=== PATIENT | male | born 1985 | race African-American/Black ===

== ENCOUNTER 2016-11-14 19:52 | Emergency (ER) | payer OTHER ==
[2016-11-14] MEDS ORDERED: ACETAMINOPHEN 325 MG TAB As Ordered ONE (20:45)
--- NOTE | 2016-11-14 23:45 | EDDOCDS ---
Nurse's Notes [facility] Name: Ender Gomez Age: 31 yrs Sex: Male : 1985 Arrival Date: 11/14/2016 Time: 19:52 Bed PR Private MD: MIFazal VARGAS Diagnosis: Other internal derangements of knee Presentation: 11/14 20:12 Presenting complaint: Patient states: right knee pain since last year. No new injury ttb noted. Adult Sepsis Screening: The patient does not have new or worsening altered mentation. Patient's respiratory rate is less than 22. Systolic blood pressure is greater than 100. Patient has a qSOFA score of 0- Negative Sepsis Screen. Suicide/Homicide risk assessment- the patient denies having any suicidal and/or homicidal ideations and does not present with any other emotional, behavioral or mental health complaints. 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 Transition of care: patient was not received from another setting of care. 20:12 Acuity: JARVIS Level 4 ttb 20:12 Method Of Arrival: Walkin/Carried/Asstd ttb Triage Assessment: 20:13 General: Appears in no apparent distress, well nourished, well groomed, Behavior is ttb appropriate for age, cooperative, pleasant. Pain: Location: right knee 04/12. HIV screening NA for this visit Offered previously. Neurological: Level of Consciousness is awake, alert. Cardiovascular: Chest pain is denied. Respiratory: No deficits noted. Airway is patent Respiratory effort is even, unlabored, Denies cough, shortness of breath. Derm: Skin is normal. Musculoskeletal: Range of motion intact in all extremities. Reports pain in right knee. Historical: - Allergies: no known allergies; - Home Meds: 1. ibuprofen 200 mg Oral tab 600 mg prn (Last dose: 11/14/2016 18:00) - PMHx: knee pain; - PSHx: right wrist surgery; - Social history: Smoking status: Patient states was never smoker of tobacco. Patient/guardian denies using alcohol, street drugs, No barriers to communication noted, The patient speaks fluent Omani, Speaks appropriately for age. - Family history: Not pertinent. - : The pt / caregiver states he / she is not on anticoagulants. Home medication list is obtained from the patient. - Exposure Risk Screening:: None identified. Screenin:41 Screening information is obtained from the patient. Fall risk: No risks identified. tm5 Assistance ADL's: requires no assistance with activities of daily living. Abuse/DV Screen: The patient / caregiver reports he/she is: not in a situation that causes fear, pain or injury. Nutritional screening: No deficits noted. Advance Directives: There is no active DNR order. home support is adequate. 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 Vital Signs: 19:54 BP 146 / 87; Pulse 70; Resp 18; Temp 97.4(O); Pulse Ox 100% on R/A; Weight 77.11 kg; dem1 Height 5 ft. 7 in. (170.18 cm); Pain 10/10; 23:42 BP 132 / 58; Pulse 70; Resp 18; Temp 97.8(O); Pulse Ox 99% on R/A; Pain 4/10; tm5 19:54 Body Mass Index 26.63 (77.11 kg, 170.18 cm) [facility] Vitals: 19:54 Log In Time: November 14, 2016 at 19:52. [facility] ED Course: 19:53 Patient visited by William Reese. dem1 19:53 [facility] is Private Physician. dem1 19:53 Patient moved to Waiting dem1 19:54 Patient moved to Pre RCE dem1 20:13 Triage Initiated ttb 20:26 [facility] ck7 20:26 Renzo Spangler DO is Attending Physician. ck7 20:26 Patient visited by Tay Soto RPA-C. ck7 20:26 Patient moved to Triage 2 jp4 20:47 Patient moved to TR2 jp4 21:01 Patient visited by Tay Soto RPA-C. ck7 22:07 Patient visited by Tay Soto RPA-C. ck7 22:55 Patient moved to PR1 / 25 jp4 23:08 Patient visited by Tay Soto RPA-C. ck7 23:08 [facility] is Referral Physician. ck7 23:30 [facility] Payment Agreement was scanned into [employer] and attached to record. zo 23:41 The patient / caregiver is instructed regarding the plan of care and ED course. tm5 23:41 No IV's were initiated during this patient's visit. No procedures done that require tm5 assistance. Crutch training done. Knee immobilizer applied on right knee. Patient with positive distal sensation and brisk distal capillary refill after application. Administered Medications: 20:47 Drug: Acetaminophen 650 mg [acetaminophen 325 mg tablet (2 tabs)] Route: PO; rs3 23:41 Follow up: Response: No Adverse Reaction tm5 Order Results: There are currently no results for this order. Outcome: 23:09 Discharge ordered by Provider. ck7 23:42 Discharge Assessment: Patient awake, alert and oriented x 3. No cognitive and/or tm5 functional deficits noted. Patient verbalized understanding of disposition instructions. patient administered narcotics - no. The following High Risk Discharge criteria are identified: None. Condition: good Condition: stable. No special radiology studies were completed. Property :Personal belongings accompany Pt. 23:44 Patient left the ED. tm5 Signatures: Claire Ferreira Rosemary,RN RN rs3 William Reese dem1 Tay Soto, RPA-C RPA-Cck7 Rupali Flores, RN RN ttKvng Mixon jp4 Chastity Bridges RN RN tm5 MTDD
--- NOTE | 2016-11-14 23:45 | EDDOCDS ---
Physician Documentation [facility] Name: Enedr Gomez Age: 31 yrs Sex: Male : 1985 Arrival Date: 11/14/2016 Time: 19:52 Bed PR Private MD: [facility] [place] Disposition: 11/14/16 23:09 Discharged to Home/Self Care. Impression: Other internal derangements of knee. - Condition is Stable. - Discharge Instructions: Knee Pain. - Prescriptions for Naprosyn 500 mg Oral Tablet - take 1 tablet by ORAL route 2 times per day take with food; 30 tablet. - Medication Reconciliation, Local Pharmacy Hours form. - Follow up: [facility] [place]; When: 1 - 2 days; Reason: Recheck today's complaints, Continuance of care. - Problem is new. - Symptoms have improved. - Notes: STOP MOTRIN, START NAPROSYN, FOLLOW UP WITH YOUR DOCTOR, RETURN TO THE ER IF THE SYMPTOMS WORSEN OR BECOME CONCERNING Historical: - Allergies: no known allergies; - Home Meds: 1. ibuprofen 200 mg Oral tab 600 mg prn (Last dose: 11/14/2016 18:00) - PMHx: knee pain; - PSHx: right wrist surgery; - Social history: Smoking status: Patient states was never smoker of tobacco. Patient/guardian denies using alcohol, street drugs, No barriers to communication noted, The patient speaks fluent Sami, Speaks appropriately for age. - Family history: Not pertinent. - : The pt / caregiver states he / she is not on anticoagulants. Home medication list is obtained from the patient. - Exposure Risk Screening:: None identified. Vital Signs: 11/14 19:54 BP 146 / 87; Pulse 70; Resp 18; Temp 97.4(O); Pulse Ox 100% on R/A; Weight 77.11 kg / dem1 170 lbs; Height 5 ft. 7 in. (170.18 cm); Pain 10/10; 23:42 BP 132 / 58; Pulse 70; Resp 18; Temp 97.8(O); Pulse Ox 99% on R/A; Pain 4/10; tm5 19:54 Body Mass Index 26.63 (77.11 kg, 170.18 cm) dem1 Procedures: 23:13 Fracture care/splinting: Splint applied to right leg using knee immobilizer, applied by ck7 nurse. Examined by me, post splint application: neurovascular intact, 2+ distal pulses palpable, brisk capillary refill noted, Patient tolerated well. MDM: 20:42 Acetaminophen Tablet 650 mg PO once ordered. ck7 20:43 Knee, Complete Ordered. EDMS 23:08 Knee Immobilizer ordered. ck7 23:08 Crutches ordered. ck7 23:30 Financial registration complete. zo 23:30 [facility] Payment Agreement was scanned into [email or web address] and attached to record. zo Administered Medications: 20:47 Drug: Acetaminophen 650 mg [acetaminophen 325 mg tablet (2 tabs)] Route: PO; rs3 23:41 Follow up: Response: No Adverse Reaction tm5 Signatures: Dispatcher [employer] EDMS Claire Ferreira Christopher, RPA-C RPA-Cck7 Rupali Flores RN RN ttb Chastity Bridges RN RN tm5 Heena Ngo RN rs3 The chart was reviewed and I authenticate all verbal orders and agree with the evaluation and treatment provided.Attachments: 23:30 [facility] Payment Agreement zo MTDD
--- NOTE | 2016-11-15 13:56 | REP ---
RIGHT KNEE SERIES, COMPLETE: 11/14/2016. Clinical history: Knee pain. Five views are provided. [place] view shows no subluxation, dislocation or joint space narrowing of the patellar femoral joint. No patellar fracture. I see no definite joint effusion. There is no loose body, osteochondral defect or joint space narrowing of the medial or lateral compartments. No fracture or avulsion. Impression: 1. Negative right knee series. Signed by Flaco Hill MD 11/15/2016 07:24 P
--- NOTE | 2016-11-17 00:45 | EDDOCDS ---
Nurse's Notes [facility] Name: Ender Gomez Age: 31 yrs Sex: Male : 1985 Arrival Date: 11/14/2016 Time: 19:52 Bed PR Private MD: NCFazal VARGAS Diagnosis: Other internal derangements of knee Presentation: 11/14 20:12 Presenting complaint: Patient states: right knee pain since last year. No new injury ttb noted. Adult Sepsis Screening: The patient does not have new or worsening altered mentation. Patient's respiratory rate is less than 22. Systolic blood pressure is greater than 100. Patient has a qSOFA score of 0- Negative Sepsis Screen. Suicide/Homicide risk assessment- the patient denies having any suicidal and/or homicidal ideations and does not present with any other emotional, behavioral or mental health complaints. 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 Transition of care: patient was not received from another setting of care. 20:12 Acuity: JARVIS Level 4 ttb 20:12 Method Of Arrival: Walkin/Carried/Asstd ttb Triage Assessment: 20:13 General: Appears in no apparent distress, well nourished, well groomed, Behavior is ttb appropriate for age, cooperative, pleasant. Pain: Location: right knee 04/12. HIV screening NA for this visit Offered previously. Neurological: Level of Consciousness is awake, alert. Cardiovascular: Chest pain is denied. Respiratory: No deficits noted. Airway is patent Respiratory effort is even, unlabored, Denies cough, shortness of breath. Derm: Skin is normal. Musculoskeletal: Range of motion intact in all extremities. Reports pain in right knee. Historical: - Allergies: no known allergies; - Home Meds: 1. ibuprofen 200 mg Oral tab 600 mg prn (Last dose: 11/14/2016 18:00) - PMHx: knee pain; - PSHx: right wrist surgery; - Social history: Smoking status: Patient states was never smoker of tobacco. Patient/guardian denies using alcohol, street drugs, No barriers to communication noted, The patient speaks fluent [place], Speaks appropriately for age. - Family history: Not pertinent. - : The pt / caregiver states he / she is not on anticoagulants. Home medication list is obtained from the patient. - Exposure Risk Screening:: None identified. Screenin:41 Screening information is obtained from the patient. Fall risk: No risks identified. tm5 Assistance ADL's: requires no assistance with activities of daily living. Abuse/DV Screen: The patient / caregiver reports he/she is: not in a situation that causes fear, pain or injury. Nutritional screening: No deficits noted. Advance Directives: There is no active DNR order. home support is adequate. Assessment: 23:42 General: Appears in no apparent distress, physician note, pt appeared to be in no tm5 distress, pt with + understanding of all discharge & crutch use & knee immobilizer. Vital Signs: 19:54 BP 146 / 87; Pulse 70; Resp 18; Temp 97.4(O); Pulse Ox 100% on R/A; Weight 77.11 kg; dem1 Height 5 ft. 7 in. (170.18 cm); Pain 10/10; 23:42 BP 132 / 58; Pulse 70; Resp 18; Temp 97.8(O); Pulse Ox 99% on R/A; Pain 4/10; tm5 19:54 Body Mass Index 26.63 (77.11 kg, 170.18 cm) [facility] Vitals: 19:54 Log In Time: November 14, 2016 at 19:52. [facility] ED Course: 19:53 Patient visited by William Reese. dem1 19:53 [facility] is Private Physician. dem1 19:53 Patient moved to Waiting dem1 19:54 Patient moved to Pre RCE dem1 20:13 Triage Initiated ttb 20:26 [facility] ck7 20:26 Renzo Spangler DO is Attending Physician. ck7 20:26 Patient visited by Tay Soto RPA-C. ck7 20:26 Patient moved to Triage 2 jp4 20:47 Patient moved to TR2 jp4 21:01 Patient visited by Tay Soto RPA-C. ck7 22:07 Patient visited by Tay Soto RPA-C. ck7 22:55 Patient moved to PR1 / 25 jp4 23:08 Patient visited by Tay Soto RPA-C. ck7 23:08 [facility] is Referral Physician. ck7 23:30 [facility] Payment Agreement was scanned into [employer] and attached to record. zo 23:41 The patient / caregiver is instructed regarding the plan of care and ED course. tm5 23:41 No IV's were initiated during this patient's visit. No procedures done that require tm5 assistance. Crutch training done. Knee immobilizer applied on right knee. Patient with positive distal sensation and brisk distal capillary refill after application. 11/15 14:31 Knee, Complete Returned. EDVT 19:14 T-Sheet-- Draft Copy was scanned into [employer] and attached to record. klr Administered Medications: 11/14 20:47 Drug: Acetaminophen 650 mg [acetaminophen 325 mg tablet (2 tabs)] Route: PO; rs3 23:41 Follow up: Response: No Adverse Reaction tm5 Order Results: Radiology Order: Knee, Complete Test: Knee, Complete REASON FOR EXAMINATION: Deformity/Swelling; RIGHT KNEE SERIES, COMPLETE: 11/14/2016.; ; Clinical history: Knee pain.; ; Five views are provided.; ; [place] view shows no subluxation, dislocation or joint space narrowing of the; patellar femoral joint. No patellar fracture. I see no definite joint effusion.; There is no loose body, osteochondral defect or joint space narrowing of the; medial or lateral compartments. No fracture or avulsion.; ; Impression:; ; 1. Negative right knee series.; ; ; Signed by; Flaco Hill MD 11/15/2016 07:24 P; Outcome: 23:09 Discharge ordered by Provider. ck7 23:42 Discharge Assessment: Patient awake, alert and oriented x 3. No cognitive and/or tm5 functional deficits noted. Patient verbalized understanding of disposition instructions. patient administered narcotics - no. The following High Risk Discharge criteria are identified: None. Condition: good Condition: stable. No special radiology studies were completed. Property :Personal belongings accompany Pt. 23:44 Patient left the ED. tm5 Signatures: Dispatcher [employer] EDMS Claire Ferreira Rosemary,RN RN rs3 William Reese1 Tay Soto, RPA-C RPA-Cck7 Rupali Flores RN RN ttKvng Mixon Kathie klr Matice, Tonya,RN RN tm5 Chart Complete MTDD
--- NOTE | 2016-11-17 00:45 | EDDOCDS ---
Physician Documentation [facility] Name: Ender Gomez Age: 31 yrs Sex: Male : 1985 Arrival Date: 11/14/2016 Time: 19:52 Bed PR Private MD: [facility] [place] Disposition: 11/14/16 23:09 Discharged to Home/Self Care. Impression: Other internal derangements of knee. - Condition is Stable. - Discharge Instructions: Knee Pain. - Prescriptions for Naprosyn 500 mg Oral Tablet - take 1 tablet by ORAL route 2 times per day take with food; 30 tablet. - Medication Reconciliation, Local Pharmacy Hours form. - Follow up: [facility] [place]; When: 1 - 2 days; Reason: Recheck today's complaints, Continuance of care. - Problem is new. - Symptoms have improved. - Notes: STOP MOTRIN, START NAPROSYN, FOLLOW UP WITH YOUR DOCTOR, RETURN TO THE ER IF THE SYMPTOMS WORSEN OR BECOME CONCERNING Historical: - Allergies: no known allergies; - Home Meds: 1. ibuprofen 200 mg Oral tab 600 mg prn (Last dose: 11/14/2016 18:00) - PMHx: knee pain; - PSHx: right wrist surgery; - Social history: Smoking status: Patient states was never smoker of tobacco. Patient/guardian denies using alcohol, street drugs, No barriers to communication noted, The patient speaks fluent Arabic, Speaks appropriately for age. - Family history: Not pertinent. - : The pt / caregiver states he / she is not on anticoagulants. Home medication list is obtained from the patient. - Exposure Risk Screening:: None identified. Vital Signs: 11/14 19:54 BP 146 / 87; Pulse 70; Resp 18; Temp 97.4(O); Pulse Ox 100% on R/A; Weight 77.11 kg / dem1 170 lbs; Height 5 ft. 7 in. (170.18 cm); Pain 10/10; 23:42 BP 132 / 58; Pulse 70; Resp 18; Temp 97.8(O); Pulse Ox 99% on R/A; Pain 4/10; tm5 19:54 Body Mass Index 26.63 (77.11 kg, 170.18 cm) dem1 Procedures: 23:13 Fracture care/splinting: Splint applied to right leg using knee immobilizer, applied by ck7 nurse. Examined by me, post splint application: neurovascular intact, 2+ distal pulses palpable, brisk capillary refill noted, Patient tolerated well. MDM: 20:42 Acetaminophen Tablet 650 mg PO once ordered. ck7 20:43 Knee, Complete Ordered. EDMS 23:08 Knee Immobilizer ordered. ck7 23:08 Crutches ordered. ck7 23:30 Financial registration complete. zo 23:30 [facility] Payment Agreement was scanned into [employer] and attached to record. zo 11/15 19:14 T-Sheet-- Draft Copy was scanned into [employer] and attached to record. klr Administered Medications: 11/14 20:47 Drug: Acetaminophen 650 mg [acetaminophen 325 mg tablet (2 tabs)] Route: PO; rs3 23:41 Follow up: Response: No Adverse Reaction tm5 Signatures: Dispatcher [employer] EDMS Claire Ferreira Christopher, ANTIONE-C RPA-Cck7 Rupali Flores RN RN Jenn Dixon Tonya, RN RN tm5 Heena Ngo RN rs3 The chart was reviewed and I authenticate all verbal orders and agree with the evaluation and treatment provided.Attachments: 23:30 [facility] Payment Agreement zo 11/15 19:14 T-Sheet-- Draft Copy klr Chart Complete MTDD
--- NOTE | 2016-11-17 00:45 | EDDOCDS ---
Physician Documentation [facility] Name: Ender Gomez Age: 31 yrs Sex: Male : 1985 Arrival Date: 11/14/2016 Time: 19:52 Bed PR Private MD: [facility] [place] Disposition: 11/14/16 23:09 Discharged to Home/Self Care. Impression: Other internal derangements of knee. - Condition is Stable. - Discharge Instructions: Knee Pain. - Prescriptions for Naprosyn 500 mg Oral Tablet - take 1 tablet by ORAL route 2 times per day take with food; 30 tablet. - Medication Reconciliation, Local Pharmacy Hours form. - Follow up: [facility] [place]; When: 1 - 2 days; Reason: Recheck today's complaints, Continuance of care. - Problem is new. - Symptoms have improved. - Notes: STOP MOTRIN, START NAPROSYN, FOLLOW UP WITH YOUR DOCTOR, RETURN TO THE ER IF THE SYMPTOMS WORSEN OR BECOME CONCERNING Historical: - Allergies: no known allergies; - Home Meds: 1. ibuprofen 200 mg Oral tab 600 mg prn (Last dose: 11/14/2016 18:00) - PMHx: knee pain; - PSHx: right wrist surgery; - Social history: Smoking status: Patient states was never smoker of tobacco. Patient/guardian denies using alcohol, street drugs, No barriers to communication noted, The patient speaks fluent Serbian, Speaks appropriately for age. - Family history: Not pertinent. - : The pt / caregiver states he / she is not on anticoagulants. Home medication list is obtained from the patient. - Exposure Risk Screening:: None identified. Vital Signs: 11/14 19:54 BP 146 / 87; Pulse 70; Resp 18; Temp 97.4(O); Pulse Ox 100% on R/A; Weight 77.11 kg / dem1 170 lbs; Height 5 ft. 7 in. (170.18 cm); Pain 10/10; 23:42 BP 132 / 58; Pulse 70; Resp 18; Temp 97.8(O); Pulse Ox 99% on R/A; Pain 4/10; tm5 19:54 Body Mass Index 26.63 (77.11 kg, 170.18 cm) dem1 Procedures: 23:13 Fracture care/splinting: Splint applied to right leg using knee immobilizer, applied by ck7 nurse. Examined by me, post splint application: neurovascular intact, 2+ distal pulses palpable, brisk capillary refill noted, Patient tolerated well. MDM: 20:42 Acetaminophen Tablet 650 mg PO once ordered. ck7 20:43 Knee, Complete Ordered. EDMS 23:08 Knee Immobilizer ordered. ck7 23:08 Crutches ordered. ck7 23:30 Financial registration complete. zo 23:30 [facility] Payment Agreement was scanned into [employer] and attached to record. zo 11/15 19:14 T-Sheet-- Draft Copy was scanned into [employer] and attached to record. klr Administered Medications: 11/14 20:47 Drug: Acetaminophen 650 mg [acetaminophen 325 mg tablet (2 tabs)] Route: PO; rs3 23:41 Follow up: Response: No Adverse Reaction tm5 Signatures: Dispatcher [employer] EDMS Claire Ferreira Christopher, ANTIONE-C RPA-Cck7 Rupali Flores RN RN Jenn Dixon Tonya, RN RN tm5 Heena Ngo RN rs3 The chart was reviewed and I authenticate all verbal orders and agree with the evaluation and treatment provided.Attachments: 23:30 [facility] Payment Agreement zo 11/15 19:14 T-Sheet-- Draft Copy klr Chart Complete MTDD
== END 2016-11-14 23:44 | disposition home or self-care (01) ==
LOC: M ED 19:52
DX: M23.91 Unspecified internal derangement of right knee (principal); Z79.1 Long term (current) use of non-steroidal anti-inflammatories (NSAID)